=== PATIENT | male | born 1940 | race Caucasian/White ===

== ENCOUNTER → 2016-09-16 | Outpatient (CLI) | payer OTHER ==
[~2016-09-16] MED LIST: ASPIR 8181 MG PO; ASPIRIN81 MG PO; CARDURA 2MG TAB2 MG PO; CHRONULAC20 GM/30 M PO; ENSURE ORIGINA237 ML PO; FEROSUL325 MG PO; FERROUS SULFAT325 M2 PO; FLEXERIL 10 MG10 MG PO; LEVAQUIN750 MG PO; LEXAPRO5 MG PO; LIPITOR TAB 2020 MG PO; LOVENOX SY80 MG/0.8 SQ; MEGACE 400400 MG/10 PO; MEGACE SUSP40 MG/M1 PO; NORVASC 5 MG TAB5 MG PO; OMEPRAZOLE40 MG PO; PLAVIX 75 MG TA75 MG PO; POTASSIUM CHLO10 MEQ PO; TRAMADOL HCL50 MG PO; ZETIA10 MG PO; ZOFRAN8 MG PO
== END ==
LOC: KOH-I 09:00 → CT 10:54 → KOH-I 11:30
DX: D38.1 Neoplasm of uncertain behavior of trachea, bronchus and lung (principal); R91.8 Other nonspecific abnormal finding of lung field
CPT/HCPCS: 71260; J7050; Q9965

== ENCOUNTER → 2016-09-30 | Day surgery (SDC) | payer OTHER ==
[~2016-09-30] VITALS: Ht 167.6 cm; Wt 54.4 kg
== END | disposition home or self-care (01) ==
LOC: OR 06:27
PROVIDERS: Internal Medicine Pulmonary Disease
PROC: 0BB88ZX Excision of Left Upper Lobe Bronchus, Via Natural or Artificial Opening Endoscopic, Diagnostic (ICD-10-PCS; 2016-09-30)
PROC: 0B988ZX Drainage of Left Upper Lobe Bronchus, Via Natural or Artificial Opening Endoscopic, Diagnostic (ICD-10-PCS; principal; 2016-09-30 08:30)
DX: C34.32 Malignant neoplasm of lower lobe, left bronchus or lung (principal); I10 Essential (primary) hypertension; R04.2 Hemoptysis; R63.4 Abnormal weight loss; K21.9 Gastro-esophageal reflux disease without esophagitis; M19.90 Unspecified osteoarthritis, unspecified site; J43.9 Emphysema, unspecified; F17.210 Nicotine dependence, cigarettes, uncomplicated; Z79.82 Long term (current) use of aspirin; Z79.02 Long term (current) use of antithrombotics/antiplatelets; Z79.899 Other long term (current) drug therapy; Z86.73 Personal history of transient ischemic attack (TIA), and cerebral infarction without residual deficits
CPT/HCPCS: 88341; 88342; 94664; J0171; J1100; J2250